=== PATIENT | female | born 2000 | race African-American/Black ===

== ENCOUNTER → 2020-02-29 | Outpatient (CLI) | payer OTHER ==
--- NOTE | 2020-02-29 15:51 | XR ---
Thoracic spine HISTORY: Back pain 3 views of the thoracic spine There is a slight spinal curvature present. Thoracic vertebral bodies show preserved height and bone mineralization. There is spondylosis especially in the midthoracic spine, preservation of disc spaces noted. There is no paraspinal mass. IMPRESSION: Mild spinal curvature, thoracic spondylosis.
== END | disposition home or self-care (01) ==
LOC: RADXRMAIN 15:14
PROVIDERS: ATTEND Family Medicine
DX: M47.814 Spondylosis without myelopathy or radiculopathy, thoracic region (principal); M43.8X4 Other specified deforming dorsopathies, thoracic region
CPT/HCPCS: 72070

== ENCOUNTER 2022-02-26 17:01 | Inpatient (IN) | payer OTHER ==
[2022-02-26] MEDS ORDERED: SODIUM CHLORIDE 0.9% 1,000 ML IV STA (17:56)
[2022-02-26] MEDS ORDERED: LORazepam 1 MG TAB PO STA (17:57)
[2022-02-26 18:05] LABS: Glucose,Whole Blood 95 mg/dL (70-110)
--- NOTE | 2022-02-26 18:09 | ED ---
General Adult HPI - General Chief complaint: Neuro Symptoms/Deficit Stated complaint: headache, left side numbness, chest pain Time Seen by Provider: 02/26/22 17:48 Source: patient, RN notes reviewed, old records reviewed Mode of arrival: ambulatory - History of Present Illness Initial comments: Was notified by nursing staff about the patient at 1745. I evaluated her shortly afterwards. Patient was placed in room 11 for me to evaluate the patient. Patient states that she does have a history of diabetes, anxiety, and at 2 PM today began having acute onset of left-sided numbness. It is in her left jaw, left upper extremity, as well as left lower extremity. Has been unc hanged since 2:00. No obvious causes for her. Is not expenses before. Does have a history of panic attacks previously but she states typically that this did not cause it. She began having some chest tightness which she thinks may be related to anxiety following onset of these symptoms. Denies any weakness. Denies any other symptoms at this time. Became concerned regarding her symptoms and presents emergency department for further evaluation. They started shortly after obtaining blood work at the [facility] for STI testing. Blood work was obtained in the right upper extremity. Symptoms are on the left side. No history of strokes. No other symptoms at this time. Presents for further evaluation. - Related Data Home Medications Medication Instructions Recorded Confirmed norethindrone-e.estradioL-iron 1 tab PO DAILY 02/26/22 02/26/22 [Junel Fe 1.5 mg-30 Mcg Tablet] Allergies Allergy/AdvReac Type Severity Reaction Status Date / Time No Known Allergies Allergy Verified 02/26/22 20:14 Review of Systems ROS Statement: Those systems with pertinent positive or pertinent negative responses have been documented in the HPI. Review of Systems: CONST: Denies fever EYES: Denies blurry vision ENT: Denies nasal congestion C/V: Denies Chest pain RESP: Denies shortness of breath GI: Denies abdominal pain : Denies dysuria SKIN: Denies rash. MSK: Denies joint pain. NEURO: Endorses left sided numbness ROS Other: All systems not noted in ROS Statement are negative. Past Medical History Past Medical History: Diabetes Mellitus History of Any Multi-Drug Resistant Organisms: None Reported Past Surgical History: No Surgical Hx Reported Past Psychological History: Anxiety, Depression Smoking Status: Never smoker Past Alcohol Use History: Occasional Past Drug Use History: None Reported General Exam - General Exam Comments Initial Comments: General: Appears in no acute distress. HEAD: Normal with no signs of head trauma. EYES: PERRLA, EOMI, conjunctiva normal, no discharge. Pupils are 3 mm and equal bilaterally. ENT: Hearing grossly intact, normal oropharynx. RESPIRATORY: Clear breath sounds bilaterally. No wheezes, rales, or rhonchi. C/V: Regular rate and rhythm. S1 and S2 auscultated, no edema, peripheral pulses 2+ and intact throughout ABD: Abd is soft, nontender, nondistended EXT: Normal range of motion, no obvious deformity SKIN: No rashes or lesions observed on exposed skin. NEURO: Alert and oriented x 4. Cranial nerves II-XII intact. Patient has decreased sensation to touch in the entire left upper extremity, worse in the hand and forearm, since terminated around the biceps muscle in the upper extremity. Patient also has left lower extremity decreased sensation to light touch , from the left knee down to the toes. NIH is 1. GCS 15. Last known well was 1400. Course Vital Signs 02/26/22 02/26/22 02/26/22 17:34 18:55 22:55 Temperature 98.5 F Pulse Rate 81 81 76 Respiratory 16 18 16 Rate Blood Pressure 148/84 134/74 93/56 O2 Sat by Pulse 98 96 97 Oximetry Medical Decision Making - Medical Decision Making Was pt. sent in by a medical professional or institution? @ -No Did you speak to anyone other than the patient for history? @ -Family and patient Did you review nursing and triage notes? @ -Yes, agree Were old charts reviewed? @ -No Differential Diagnosis? @ -Stroke, anxiety attack, panic attack. Differential was not limited to these diagnoses. EKG interpreted by me (3pts min.)? @ -Yes. See EKG note. X-rays interpreted by me (1pt min.)? @ -Yes. Chest x-ray reveals No acute cardio pulmonary process. CT interpreted by me (1pt min.)? @ -Yes. Acute intracranial process and brain CT, CT angiogram reveals no acute intracranial process. of stroke, hemorrhage, bleed. U/S interpreted by me (1pt. min.)? @ -none What testing was considered but not performed? (CT, X-rays, U/S, labs)? Why? @None What meds were considered but not given? Why? @ -none Did you discuss the management of the patient with other professionals? @ -Yes, neuro critical care Dr. Aguilar. Did you reconcile home meds? @ -none Was smoking cessation discussed for >3mins.? @ -none Was critical care preformed (if so, how long)? @ -Yes. See critical care note. Were there social determinants of health that impacted care today? How? (Homelessness, low income, unemployed, alcoholism, drug addiction, transportation, low edu. Level, literacy, decrease access to med. care, [facility], rehab)? @ -No Was there de-escalation of care discussed even if they declined? (Discuss DNR or withdrawal of care, Hospice)? @ -No What co-morbidities impacted this encounter? (DM, HTN, Smoking, COPD, CAD, Cancer, CVA, Hep., AIDS, mental health diagnosis, sleep apnea, morbid obesity)? @ -Anxiety, diabetes Was patient admitted / discharged? @ -Patient presents with strokelike symptoms. Was made a stroke pager activation at 1800 PM. Does not meet criteria for TPA, as the patient has very mild symptoms with a low NIH of 1. Last known well was 1400.. I spoke with Dr. Jefferson of neuro critical care at 1805 who agreed with this evaluation. He was in agreement with stroke workup. Patient will be given Ativan for anxiety. Vital signs otherwise within acceptable limits. Patient's imaging revealed no evidence of stroke. Laboratory studies were remarkable for an elevated white cell count of 14 which is likely reactive. Troponin is undetectable. Urine studies are unremarkable. Remainder the workup is unremarkable. Vital signs remain within acceptable limits at this time. I updated the patient on her workup. She states that the chest discomfort she was expressing has resolved, however she is having continued left upper extremity and left lower extremity numbness. Really no change. At this time we did discuss that with her symptoms, I cannot definitively rule out stroke at this time. She was not a TPA candidate as discussed above. Therefore I did offer her admission for evaluation by neurology which she accepted. She was given 325 mg of aspirin. Neurology was consulted. Stroke admission order set was used. I spoke with the admitting physician, Dr. Kumari who accepted the patient. There was a long delay in speaking Dr. Kumari, as the on-call pager was turned off and this delayed admission. Neurology Dr. Sánchez was consulted. Undiagnosed new problem with uncertain prognosis? @ -Left upper extremity and left lower extremity numbness of unknown etiology Drug Therapy requiring intensive monitoring for toxicity (Heparin, Nitro, Insulin, Cardizem)? @ -none Were any procedures done? @ -none Diagnosis/symptom? @ -Left upper extremity and left lower extremity numbness of unknown etiology, concern for possible stroke Acute, or Chronic, or Acute on Chronic? @ -Acute Uncomplicated (without systemic symptoms) or Complicated (systemic symptoms)? @ -Uncomplicated Side effects of treatment? @ -none Exacerbation, Progression, or Severe Exacerbation] @ -no Poses a threat to life or bodily function? @ -no - Lab Data Result diagrams: 02/26/22 18:02 02/26/22 18:04 Lab Results 02/26/22 02/26/22 02/26/22 Range/Units 18:02 18:02 18:04 WBC 14.2 H (3.8-10.6) k/uL RBC 4.92 (3.80-5.40) m/uL Hgb 13.3 (11.4-16.0) gm/dL Hct 40.0 (34.0-46.0) % MCV 81.3 (80.0-100.0) fL MCH 27.1 (25.0-35.0) pg MCHC 33.3 (31.0-37.0) g/dL RDW 12.4 (11.5-15.5) % Plt Count 357 (150-450) k/uL MPV 8.3 Neutrophils % 72 % Lymphocytes % 21 % Monocytes % 4 % Eosinophils % 1 % Basophils % 1 % Neutrophils # 10.2 H (1.3-7.7) k/uL Lymphocytes # 3.0 (1.0-4.8) k/uL Monocytes # 0.6 (0-1.0) k/uL Eosinophils # 0.1 (0-0.7) k/uL Basophils # 0.1 (0-0.2) k/uL PT 9.8 (9.0-12.0) sec INR 0.9 (<1.2) APTT 24.5 (22.0-30.0) sec Sodium 140 (137-145) mmol/L Potassium 4.3 (3.5-5.1) mmol/L Chloride 105 (98-107) mmol/L Carbon Dioxide 24 (22-30) mmol/L Anion Gap 11 mmol/L BUN 12 (7-17) mg/dL Creatinine 0.66 (0.52-1.04) mg/dL Est GFR (CKD-EPI)AfAm >90 (>60 ml/min/1.73 sqM) Est GFR (CKD-EPI)NonAf >90 (>60 ml/min/1.73 sqM) Glucose 97 (74-99) mg/dL POC Glucose (mg/dL) (70-110) mg/dL POC Glu [employer] Data Entry ID Calcium 9.7 (8.4-10.2) mg/dL Total Bilirubin 0.2 (0.2-1.3) mg/dL AST 27 (14-36) U/L ALT 21 (4-34) U/L Alkaline Phosphatase 96 (38-126) U/L Troponin I (0.000-0.034) ng/mL Total Protein 7.4 (6.3-8.2) g/dL Albumin 4.4 (3.5-5.0) g/dL Urine Color Urine Appearance (Clear) Urine pH (5.0-8.0) Ur Specific [place] (1.001-1.035) Urine Protein (Negative) Urine Glucose (UA) (Negative) Urine Ketones (Negative) Urine Blood (Negative) Urine Nitrite (Negative) Urine Bilirubin (Negative) Urine Urobilinogen (<2.0) mg/dL Ur Leukocyte Esterase (Negative) Urine Opiates Screen (NotDetected) Ur Oxycodone Screen (NotDetected) Urine Methadone Screen (NotDetected) Ur Propoxyphene Screen (NotDetected) Ur Barbiturates Screen (NotDetected) U Tricyclic Antidepress (NotDetected) Ur Phencyclidine Scrn (NotDetected) Ur Amphetamines Screen (NotDetected) U Methamphetamines Scrn (NotDetected) U Benzodiazepines Scrn (NotDetected) Urine Cocaine Screen (NotDetected) U Marijuana (THC) Screen (NotDetected) 02/26/22 02/26/22 02/26/22 Range/Units 18:04 18:04 18:48 WBC (3.8-10.6) k/uL RBC (3.80-5.40) m/uL Hgb (11.4-16.0) gm/dL Hct (34.0-46.0) % MCV (80.0-100.0) fL MCH (25.0-35.0) pg MCHC (31.0-37.0) g/dL RDW (11.5-15.5) % Plt Count (150-450) k/uL MPV Neutrophils % % Lymphocytes % % Monocytes % % Eosinophils % % Basophils % % Neutrophils # (1.3-7.7) k/uL Lymphocytes # (1.0-4.8) k/uL Monocytes # (0-1.0) k/uL Eosinophils # (0-0.7) k/uL Basophils # (0-0.2) k/uL PT (9.0-12.0) sec INR (<1.2) APTT (22.0-30.0) sec Sodium (137-145) mmol/L Potassium (3.5-5.1) mmol/L Chloride (98-107) mmol/L Carbon Dioxide (22-30) mmol/L Anion Gap mmol/L BUN (7-17) mg/dL Creatinine (0.52-1.04) mg/dL Est GFR (CKD-EPI)AfAm (>60 ml/min/1.73 sqM) Est GFR (CKD-EPI)NonAf (>60 ml/min/1.73 sqM) Glucose (74-99) mg/dL POC Glucose (mg/dL) 95 (70-110) mg/dL POC Glu [employer] Data Entry ID Achatz, Tiffanie Calcium (8.4-10.2) mg/dL Total Bilirubin (0.2-1.3) mg/dL AST (14-36) U/L ALT (4-34) U/L Alkaline Phosphatase (38-126) U/L Troponin I <0.012 (0.000-0.034) ng/mL Total Protein (6.3-8.2) g/dL Albumin (3.5-5.0) g/dL Urine Color Yellow Urine Appearance Clear (Clear) Urine pH 6.0 (5.0-8.0) Ur Specific [place] >1.050 H (1.001-1.035) Urine Protein Trace H (Negative) Urine Glucose (UA) Negative (Negative) Urine Ketones Negative (Negative) Urine Blood Negative (Negative) Urine Nitrite Negative (Negative) Urine Bilirubin Negative (Negative) Urine Urobilinogen <2.0 (<2.0) mg/dL Ur Leukocyte Esterase Negative (Negative) Urine Opiates Screen Not Detected (NotDetected) Ur Oxycodone Screen Not Detected (NotDetected) Urine Methadone Screen Not Detected (NotDetected) Ur Propoxyphene Screen Not Detected (NotDetected) Ur Barbiturates Screen Not Detected (NotDetected) U Tricyclic Antidepress Not Detected (NotDetected) Ur Phencyclidine Scrn Not Detected (NotDetected) Ur Amphetamines Screen Not Detected (NotDetected) U Methamphetamines Scrn Not Detected (NotDetected) U Benzodiazepines Scrn Not Detected (NotDetected) Urine Cocaine Screen Not Detected (NotDetected) U Marijuana (THC) Screen Not Detected (NotDetected) - EKG Data -: EKG Interpreted by Me EKG Comments: 12-lead Electrocardiogram Interpretation Note EKG was reviewed and interpreted by myself. 12-lead ECG performed at 1800 is interpreted by me as revealing normal sinus rhythm at a rate of 82 beats per minute. [place] is normal. DE interval is 142 ms, QRS duration 71 ms, QTc is 394 ms.. There were no ST or T wave abnormalities to suggest myocardial ischemia or injury. R wave progression across the precordium was satisfactory. By my interpretation this EKG is non-diagnostic for acute ischemia. No prior EKG for comparison. Critical Care Time Critical Care Time: Yes Total Critical Care Time: 35 Critical Care Time: Upon my evaluation, this patient had a high probability of imminent or life- threatening deterioration due to stroke activation, which required my direct attention, intervention, and personal management. I have personally provided 35 minutes of critical care time exclusive of time spent on separately billable procedures. Time includes review of laboratory data, radiology results, discussion with consultants, and monitoring for potential decompensation. Interventions were performed as documented in my note. Disposition Clinical Impression: Left arm numbness, Left leg numbness Disposition: ADMITTED IP TO THIS [facility] Condition: Stable Time of Disposition: 19:30
[2022-02-26 18:16] LABS: Basophils # (A) 0.1 k/uL (0-0.2); Basophils % (A) 1 %; Eosinophils # (A) 0.1 k/uL (0-0.7); Eosinophils % (A) 1 %; HGB 13.3 gm/dL (11.4-16.0); Lymphocytes % (A) 21 %; MCH 27.1 pg (25.0-35.0); MCHC 33.3 g/dL (31.0-37.0); MCV 81.3 fL (80.0-100.0); Mean Platelet Volume 8.3; Monocytes # (A) 0.6 k/uL (0-1.0); Monocytes % (A) 4 %; Neutrophils # (A) 10.2 k/uL (1.3-7.7); Neutrophils % (A) 72 %; Platelet Count 357 k/uL (150-450); RBC 4.92 m/uL (3.80-5.40); RDW 12.4 % (11.5-15.5); WBC 14.2 k/uL (3.8-10.6)
--- NOTE | 2022-02-26 18:25 | CT ---
EXAMINATION TYPE: CT brain wo con for TPA CT DLP: 1177.6 mGycm, Automated exposure control for dose reduction was used. DATE OF EXAM: 02/26/2022 6:20 PM COMPARISON: None. CLINICAL INDICATION:Female, 21 years old with history of Neuro deficit, acute, stroke suspected, Neur o deficit, acute, stroke suspected TECHNIQUE: Brain: Axial CT images of the brain were obtained with coronal and sagittal reformats created and rev iewed. Contrast used: None. Oral contrast used: None. FINDINGS: Brain: Extra-axial spaces: No abnormal extra-axial fluid collections. Ventricular system: Within normal limits Cerebral parenchyma: No acute intraparenchymal hemorrhage or mass effect. The benedict-white junction is well differentiated. Cerebellum: Unremarkable. Mass effect: No evidence of midline shift. Intracranial vasculature: unremarkable Soft tissues: Normal. Calvarium/osseous structures: No depressed skull fracture. Paranasal sinuses and mastoid air cells: Mild scattered paranasal sinus disease. Visualized orbits: Orbital contents are intact. Findings attempted to be communicated to Dr. Jay Pardo MD on 02/26/2022 6:[address] Dustin Quiros. IMPRESSION: No acute intracranial process.
--- NOTE | 2022-02-26 18:25 | XR ---
EXAMINATION TYPE: XR chest 2V DATE OF EXAM: 02/26/2022 6:21 PM COMPARISON: Chest radiographs from TECHNIQUE: XR chest 2V Frontal and lateral views of the chest. CLINICAL INDICATION:Female, 21 years old with history of altered mental status; FINDINGS: Lungs/Pleura: There is no evidence of pleural effusion, focal consolidation, or pneumothorax. Pulmonary vascularity: Unremarkable. Heart/mediastinum: Cardiomediastinal silhouette is unremarkable. Musculoskeletal: No acute osseous pathology. IMPRESSION: No acute cardiopulmonary disease/process.
[2022-02-26 18:26] LABS: ALT 21 U/L (4-34); AST 27 U/L (14-36); African American GFR (CKD) >90 (>60 ml/min/1.73 sqM); Albumin 4.4 g/dL (3.5-5.0); Alkaline Phosphatase 96 U/L (38-126); Anion Gap 11 mmol/L; Blood Urea Nitrogen 12 mg/dL (7-17); Calcium 9.7 mg/dL (8.4-10.2); Carbon Dioxide 24 mmol/L (22-30); Chloride 105 mmol/L (98-107); Glucose 97 mg/dL (74-99); Non-African American GFR(CKD) >90 (>60 ml/min/1.73 sqM); Potassium 4.3 mmol/L (3.5-5.1); Sodium 140 mmol/L (137-145); Total Bilirubin 0.2 mg/dL (0.2-1.3); Total Protein 7.4 g/dL (6.3-8.2)
[2022-02-26 18:28] LABS: INR 0.9 (<1.2); Partial Thromboplastin Time 24.5 sec (22.0-30.0); Prothrombin Time 9.8 sec (9.0-12.0)
--- NOTE | 2022-02-26 18:59 | CT ---
EXAMINATION TYPE: CT angio head neck CT DLP: 955.4 mGycm, Automated exposure control for dose reduction was used. DATE OF EXAM: 02/26/2022 6:46 PM COMPARISON: None. CLINICAL INDICATION:Female, 21 years old with history of Neuro deficit, acute, stroke suspected, Neur o deficit, acute, stroke suspected TECHNIQUE: Axially acquired helical CT angiogram of the head and neck was obtained with contrast. Axi al images are supplemented with 3D reconstructions which [facility] NASCET criteria used. Contrast used:90 mL of Isovue 370 with IV Contrast, Oral contrast used: None. FINDINGS: CTA HEAD: No evidence of acute intracranial hemorrhage, mass effect, or midline shift. The ventricles, sulci, a nd cisterns are unremarkable. The visualized portions of the internal carotid arteries, middle cerebral arteries, anterior cerebral arteries, and posterior cerebral arteries are patent. The basilar and vertebral arteries are patent. CTA NECK: Right Carotid System: The common carotid artery and external carotid artery are patent. The carotid bifurcation demonstrate s no evidence of hemodynamically significant stenosis. The remaining portions of the internal carotid artery demonstrate normal size without significant narrowing. Left Carotid System: The common carotid artery and external carotid artery are patent. The carotid bifurcation demonstrate s no evidence of hemodynamically significant stenosis. The remaining portions of the internal carotid artery demonstrate normal size without significant narrowing. Vertebral arteries are patent without evidence hemodynamically significant stenosis. There is a three-vessel aortic arch. The origins of the great vessels are patent. No evidence of hemo dynamically significant stenosis. IMPRESSION: 1. No evidence of dissection of the cervical internal carotid arteries or vertebral arteries or any e vidence of significant stenosis at the carotid bifurcations. 2. No evidence of intracranial high-grade stenosis or intracranial aneurysm.
[2022-02-26 19:13] LABS: Appearance,Urine Clear (Clear); Bilirubin,Urine Negative (Negative); Blood,Urine Negative (Negative); Color,Urine Yellow; Glucose,Urine (UA) Negative (Negative); Ketones,Urine Negative (Negative); Leukocyte Esterase,Urine Negative (Negative); Nitrite,Urine Negative (Negative); Protein,Urine Trace (Negative); Urobilinogen,Urine <2.0 mg/dL (<2.0)
[2022-02-26 19:14] LABS: Specific Gravity,Urine >1.050 (1.001-1.035)
[2022-02-26] MEDS ORDERED: ASPIRIN 325 MG TAB PO STA (19:22)
[2022-02-26 19:23] LABS: Amphetamine Screen,Urine Not Detected (NotDetected); Barbiturate Screen,Urine Not Detected (NotDetected); Benzodiazepines Screen,Urine Not Detected (NotDetected); Cocaine Screen,Urine Not Detected (NotDetected); Methadone Screen, Urine Not Detected (NotDetected); Opiate Screen,Urine Not Detected (NotDetected); Oxycodone Screen, Urine Not Detected (NotDetected); Phencyclidine Screen,Urine Not Detected (NotDetected); Tricyclic Antidepressant,Urine Not Detected (NotDetected); Urn Cannabinoid Scrn Not Detected (NotDetected)
[2022-02-27] MEDS ORDERED: LORazepam 1 MG TAB PO STA (00:45)
[2022-02-27] MEDS ORDERED: ACETAMINOPHEN TAB 500 MG TAB PO STA (00:47)
[2022-02-27] MEDS ORDERED: LORazepam 0.5 MG TAB PO SCH (01:00)
[2022-02-27] MEDS: HEPARIN SODIUM,PORCINE/PF 5,000 UNIT/0.5 ML SYRINGE SQ SCH ×3 (06:06→18:38)
[2022-02-27 06:57] LABS: Basophils # (A) 0.1 k/uL (0-0.2); Basophils % (A) 1 %; Eosinophils # (A) 0.1 k/uL (0-0.7); Eosinophils % (A) 1 %; HCT 32.3 % (34.0-46.0); HGB 10.8 gm/dL (11.4-16.0); Lymphocytes # (A) 2.5 k/uL (1.0-4.8); Lymphocytes % (A) 25 %; MCH 27.3 pg (25.0-35.0); MCHC 33.5 g/dL (31.0-37.0); MCV 81.7 fL (80.0-100.0); Monocytes # (A) 0.4 k/uL (0-1.0); Monocytes % (A) 5 %; Neutrophils # (A) 6.6 k/uL (1.3-7.7); Neutrophils % (A) 68 %; Platelet Count 268 k/uL (150-450); RBC 3.96 m/uL (3.80-5.40); RDW 12.4 % (11.5-15.5); WBC 9.8 k/uL (3.8-10.6)
[2022-02-27 07:13] LABS: African American GFR (CKD) >90 (>60 ml/min/1.73 sqM); Anion Gap 5 mmol/L; Blood Urea Nitrogen 11 mg/dL (7-17); Calcium 7.1 mg/dL (8.4-10.2); Carbon Dioxide 20 mmol/L (22-30); Chloride 114 mmol/L (98-107); Glucose 105 mg/dL (74-99); Non-African American GFR(CKD) >90 (>60 ml/min/1.73 sqM); Potassium 3.6 mmol/L (3.5-5.1); Sodium 139 mmol/L (137-145)
[2022-02-27 10:31] LABS: Chol/HDL Ratio 5.35 Ratio; LDL Cholesterol,Calculated 88.6 mg/dL (0.0-131.0)
[2022-02-27] MEDS ORDERED: ALPRAZolam 0.5 MG TAB PO PRN (12:25)
--- NOTE | 2022-02-27 15:19 | P.CNNES ---
History of Present Illness Consult date: 02/27/22 Requesting physician: Jay Pardo Reason for Consult: stroke activation, isolated LUE/LLE numbness to light touch History of Present Illness: Patient is a 21-year-old right-handed female came to the hospital yesterday at 5:01 PM for evaluation of left-sided numbness and tingling. Patient states that yesterday at around 2 PM she noticed her left arm became numb. It involves the whole left upper limb. An hour later, she also notices her left foot and then left leg became numb. She states that it feels like she is losing circulation and the foot is falling asleep. She notices a bad headache about half an hour later along with chest pain. Therefore she came to the ER. Patient admits to having neck pain, 6/10, always have pain in the neck and shoulder, yesterday was slightly more noticeable. Denies any problem with balance or gait. Denies any problem with bowel or bladder control issues or urgency. Denies any numbness of the truncal region. Denies any facial droop, visual problems, speech diffi culty. Denies any headache at this time although she did have some headache last night. Vital signs arrival blood pressure 148/84 pulse rate 81 temperature 98.5. Blood test shows WBC 14.2 hemoglobin 13.3 normal platelets. PT/PTT is normal, CMP normal. Troponin negative. UA negative, urine drug screen negative. CT head reported mild scattered paranasal sinus disease. No acute intracranial process. I personally reviewed CT head, agree with the findings. CTA of head and neck reported no evidence of dissection of the cervical internal carotid arteries or vertebral arteries or any evidence of significant stenosis at the carotid bifurcations. No evidence of intracranial high-grade stenosis or intracranial aneurysm. Chest x-ray showed no acute event or process. EKG with sinus rhythm. Patient states that while she was in the ER, she felt her right leg became numb a little at night, on and off. However now it has resolved. Patient does take control pills . She has been on control pills since age 16. Patient denies any tobacco use, drinks alcohol socially. She has done marijuana in the past but nothing recently. Denies any use of drugs. Patient states that her maternal aunt just been diagnosed with MS. Patient denies any previous history of optic neuritis, vertigo. She gets occasional anxiety related numbness, that lasts for about an hour. It may happen about once or twice a year, for the last few years. Review of Systems Constitutional: Denies chills, Denies fever Eyes: denies blurred vision, denies pain Ears, nose, mouth and throat: Reports headache, Denies sore throat Cardiovascular: Reports chest pain, Denies shortness of breath Respiratory: Denies cough Gastrointestinal: Denies abdominal pain, Denies diarrhea, Denies nausea, Denies vomiting Genitourinary: Denies dysuria, Denies hematuria Musculoskeletal: Reports arm numbness/tingling, Denies muscle weakness, Denies myalgias Integumentary: Denies pruritus, Denies rash Neurological: Reports as per HPI Endocrine: Denies fatigue, Denies weight change Past Medical History Past Medical History: Diabetes Mellitus History of Any Multi-Drug Resistant Organisms: None Reported Past Surgical History: No Surgical Hx Reported Past Psychological History: Anxiety, Depression Smoking Status: Never smoker Past Alcohol Use History: Occasional Past Drug Use History: None Reported Medications and Allergies Home Medications Medication Instructions Recorded Confirmed Type norethindrone-e.estradioL-iron 1 tab PO DAILY 02/26/22 02/26/22 History [Junel Fe 1.5 mg-30 Mcg Tablet] Allergies Allergy/AdvReac Type Severity Reaction Status Date / Time No Known Allergies Allergy Verified 02/26/22 20:14 Physical Examination - Vital Signs Vital Signs: Vital Signs Temp Pulse Resp BP Pulse Ox 02/27/22 06:07 67 14 94/62 100 02/26/22 22:55 76 16 93/56 97 02/26/22 18:55 81 18 134/74 96 02/26/22 17:34 98.5 F 81 16 148/84 98 Intake and Output 02/26/22 02/27/22 02/27/22 22:59 06:59 14:59 Other: Weight 124.738 kg Patient is a young Afro-[place] Citizen female, in no acute distress. She appears to be stressed because of her symptoms. Patient is alert awake oriented to time place and person. Speech and language functions are normal. Patient can name and repeat very well. No aphasia or dysarthria. Attention, concentration and fund of knowledge is adequate. On cranial nerve examination, pupils are equal, round and reacting to light, visual taylor are full on confrontation, with no neglect on double simultaneous stimulation. Extraocular muscles are intact with no nystagmus. Face is symmetric, tongue protrudes to the midline. Palatal elevation and sensation normal, hearing and shoulder shrug normal, facial sensation normal. On muscle strength testing, there is no pronator drift and the strength is normal in arms and legs distally and proximally. Deep tendon reflexes are symmetric 1+ at the biceps, 1+ brachioradialis, 2+ at the knees, 1 at ankles and plantars downgoing bilaterally. Sensory to touch and temperature is equal with no neglect on double simultaneous stimulation. Cerebellar function showed no ataxia for [id number] testing. No dysdiadocho kinesia. No ataxia for [id number] testing on either side. Tone and bulk of muscles normal. Gait deferred.. On general examination, there is no carotid bruit or murmur, S1-S2 audible. Chest is clear on consultation. Abdomen is soft nontender. No organomegaly, bowel sounds present. Peripheral pulses are present. No edema. Results - Laboratory Findings CBC and BMP: 02/27/22 06:14 02/27/22 06:14 Abnormal Lab Findings: Abnormal Labs 02/26/22 02/26/22 02/27/22 18:02 18:48 06:14 WBC 14.2 H Hgb 10.8 L Hct 32.3 L Neutrophils # 10.2 H Chloride Carbon Dioxide Glucose Calcium Ur Specific [place] >1.050 H Urine Protein Trace H 02/27/22 06:14 WBC Hgb Hct Neutrophils # Chloride 114 H Carbon Dioxide 20 L Glucose 105 H Calcium 7.1 L Ur Specific [place] Urine Protein Assessment and Plan Assessment: * New onset numbness of left arm and leg. Rule out demyelinating disease, less likely CVA. * Positive family history of MS in maternal aunt. * Obesity * Use of control pills Plan: * MRI of the brain evaluate for demyelinating disease versus CVA * B12, folate, TSH, hemoglobin A1c * Neurology will follow after these tests are completed. Thank you for the consult.
[2022-02-27 16:48] LABS: Glucose,Whole Blood 214 mg/dL (70-110)
[2022-02-27] MEDS ORDERED: DEXTROSE 50% SYRINGE 50 ML IVP PRN ×2 (18:39)
[2022-02-27 20:27] LABS: Glucose,Whole Blood 105 mg/dL (70-110)
[2022-02-27] MEDS: INSULIN ASPART (NovoLOG) 100 UNIT/ML VIAL SQ SCH (20:54)
[2022-02-27] MEDS ORDERED: CYANOCOBALAMIN 1,000 MCG/ML 1 ML VIAL IM ONE (23:35)
--- NOTE | 2022-02-27 23:39 | P.HPIM ---
History of Present Illness H&P Date: 02/27/22 Chief Complaint: Left-sided weakness Patient is a 21-year-old female with a known history of diabetes diet-controlled and no other medical problems presents to ER with complaints of left-sided numbness and tingling sensation. Patient states that her symptoms started yesterday afternoon and felt her left became numb and later noticed that her left foot and left leg became numb as well. Patient also developed headache and chest pain and presents to ER around 5:45 PM. Patient does have history of panic attacks previously but but she does not feel like her symptoms. Patient is also having chest tightness and which she thinks may be related to her anxiety following onset of the symptoms. Denies any weakness. Denies any recent illnesses. No fever no chills. No neck Stiffness. No prior history of stroke. CT head showed no acute intracranial process. CT angiogram of the head and neck showed no evidence of dissection of the cervical internal carotid arteries vertebral arteries or any evidence of significant stenosis at the carotid bifurcations. No evidence of intracranial high-grade stenosis or intracranial aneurysm. Chest x-ray showed no acute cardiopulmonary process. EKG showed sinus rhythm. Laboratory data showed WBC 14.2 hemoglobin 13.3 and platelets 357 Electrolytes within normal limits. Liver enzymes are not elevated. Troponin x1 negative. Urinalysis negative for infection. Urine tox screen is negative. MOHIT screen is negative. Review of Systems Constitutional: Patient denies any fever or chills . no Generalized weakness. Abdomen: Patient denied any nausea or vomiting or abd. pain Cardiovascular: Patient denies any chest pain or short of breath no palpitations. Respiratory: patient denied any cough . no sputum production. No shortness of breath Neurologic: Patient denied any numbness or tingling. Left-sided weakness. Positive for headache.. Musculoskeletal: Patient denies any complaints of joint swelling or deformity. Skin: Negative Psychiatric: Negative Endocrine: No heat or cold intolerance. No recent weight gain. Genitourinary: No dysuria or hematuria. All other 14 point ROS negative except the above Past Medical History Past Medical History: Diabetes Mellitus History of Any Multi-Drug Resistant Organisms: None Reported Past Surgical History: No Surgical Hx Reported Past Psychological History: Anxiety, Depression Smoking Status: Never smoker Past Alcohol Use History: Occasional Past Drug Use History: None Reported Medications and Allergies Home Medications Medication Instructions Recorded Confirmed Type norethindrone-e.estradioL-iron 1 tab PO DAILY 02/26/22 02/26/22 History [Junel Fe 1.5 mg-30 Mcg Tablet] Allergies Allergy/AdvReac Type Severity Reaction Status Date / Time No Known Allergies Allergy Verified 02/26/22 20:14 Physical Exam Vitals: Vital Signs Temp Pulse Resp BP Pulse Ox 02/27/22 06:07 67 14 94/62 100 02/26/22 22:55 76 16 93/56 97 02/26/22 18:55 81 18 134/74 96 02/26/22 17:34 98.5 F 81 16 148/84 98 Intake and Output 02/26/22 02/27/22 02/27/22 22:59 06:59 14:59 Other: Weight 124.738 kg PHYSICAL EXAMINATION: Patient is lying in the bed comfortably, no acute distress, awake alert and oriented.. HEENT: Normocephalic. Neck is supple. Pupils reactive. Nostrils clear. Oral cavity is moist. Neck reveals no JVD, carotid bruits, or thyromegaly. CHEST EXAMINATION: Trachea is central. Symmetrical expansion. Lung taylor clear to auscultation and percussion. CARDIAC: Normal S1, S2 with no gallops. No murmurs ABDOMEN: Soft. Bowel sounds present. Nontender. No organomegaly. No abdominal bruits. Extremities: reveal no edema. No clubbing or cyanosis Neurologically awake, alert, oriented x3 with well-coordinated movements. No focal deficits noted Skin: No rash or skin lesions. Psychiatric: Coperative. Nonsuicidal, Musculoskeletal: No joint swelling or deformity. Normal range of motion. Results CBC & Chem 7: 02/27/22 06:14 02/27/22 06:14 Labs: Abnormal Lab Results - Last 24 Hours (Table) 02/26/22 02/26/22 02/27/22 Range/Units 18:02 18:48 06:13 WBC 14.2 H (3.8-10.6) k/uL Hgb (11.4-16.0) gm/dL Hct (34.0-46.0) % Neutrophils # 10.2 H (1.3-7.7) k/uL Chloride (98-107) mmol/L Carbon Dioxide (22-30) mmol/L Glucose (74-99) mg/dL Calcium (8.4-10.2) mg/dL HDL Cholesterol 25.40 L (40.00-60.00) mg/dL Ur Specific [place] >1.050 H (1.001-1.035) Urine Protein Trace H (Negative) 02/27/22 02/27/22 Range/Units 06:14 06:14 WBC (3.8-10.6) k/uL Hgb 10.8 L (11.4-16.0) gm/dL Hct 32.3 L (34.0-46.0) % Neutrophils # (1.3-7.7) k/uL Chloride 114 H (98-107) mmol/L Carbon Dioxide 20 L (22-30) mmol/L Glucose 105 H (74-99) mg/dL Calcium 7.1 L (8.4-10.2) mg/dL HDL Cholesterol (40.00-60.00) mg/dL Ur Specific [place] (1.001-1.035) Urine Protein (Negative) Assessment and Plan Assessment: Left arm and left leg numbness without any focal weakness. CT head is negative for acute CVA. Rule out demyelinating disease. Morbid obesity BMI 43.1 Patient is oral contraceptive pills. History of diet-controlled diabetes History of anxiety/panic attacks. DVT prophylaxis Heparin subcu Plan: Patient will be continued on telemetry monitoring. CT head and CT angiogram, both were negative studies. MRI of the brain was ordered as per neurology recommendations to evaluate for demyelinating disease. Stroke work-up including TSH, B12 and folate levels and A1c levels were ordered. Continue with neurochecks and follow-up closely. Neurology is on board. Time with Patient: Greater than 30
[2022-02-28] MEDS: HEPARIN SODIUM,PORCINE/PF 5,000 UNIT/0.5 ML SYRINGE SQ SCH ×3 (01:04→08:56)
[2022-02-28 06:14] LABS: Glucose,Whole Blood 128 mg/dL (70-110)
[2022-02-28] MEDS: INSULIN ASPART (NovoLOG) 100 UNIT/ML VIAL SQ SCH ×2 (06:19→14:11)
[2022-02-28] MEDS ORDERED: FOLIC ACID 1 MG TAB PO SCH (09:00)
[2022-02-28] MEDS ORDERED: CYANOCOBALAMIN 500 MCG TAB PO SCH (09:00)
[2022-02-28 10:19] VITALS: BP 137/72; PULSE 68; RESP 18; TEMP 98.2
--- NOTE | 2022-02-28 11:16 | MR ---
EXAMINATION TYPE: MR brain wo con DATE OF EXAM: 02/28/2022 10:55 AM COMPARISON: CT 02/26/2022 CLINICAL INDICATION:Female, 21 years old with history of Left-sided numbness, rule out MS, rule out C [facility] TECHNIQUE: Multi planar, multi sequence imaging was performed through the brain including: T1, T2, In version recovery, Diffusion weighted imaging, and gradient echo imaging. No gadolinium was given. FINDINGS: The benedict-white junctions, ventricular system, and cisterns appear unremarkable. Midline structures sh ow no abnormality. Diffusion-weighted imaging shows no evidence of restricted diffusion. The suscepti bility weighted images do not reveal any evidence for micro-hemorrhage. The bone marrow signal is within normal limits. Paranasal sinuses and mastoid air cells: Mild scattered paranasal sinus disease. Visualized orbits: Orbital contents are intact. IMPRESSION: No evidence of intracranial mass, acute/subacute infarct or active demyelination.
[2022-02-28 11:42] LABS: Glucose,Whole Blood 104 mg/dL (70-110)
== END 2022-02-28 15:17 | disposition home or self-care (01) | DRG 92 ==
LOC: EC 17:01 → 3SCARD 20:01
PROVIDERS: ADMIT Hospitalist; ATTEND Hospitalist
DX: R20.2 Paresthesia of skin (principal); Z68.41 Body mass index [BMI] 40.0-44.9, adult; E11.9 Type 2 diabetes mellitus without complications; E66.01 Morbid (severe) obesity due to excess calories; F41.9 Anxiety disorder, unspecified; F32.A Depression, unspecified; Z79.84 Long term (current) use of oral hypoglycemic drugs; Z79.899 Other long term (current) drug therapy
CPT/HCPCS: 36415; 70450; 70496; 70498; 70551; 71046; 80048; 80053; 80061; 80306; 81003; 82607; 82746; 83036; 84484; 85025; 85610; 85730; 86038; 93005; 96360; 99285